=== PATIENT | male | born 1975 | race Caucasian/White ===

== ENCOUNTER 2022-09-09 09:04 | Emergency (ER) | payer OTHER, SELFPAY ==
--- NOTE | ~2022-09-09 | XR_ITS ---
Clinical Indication: Shortness of breath, chest pain PA and lateral views of the chest: Comparison: None Findings: The lungs are clear, without evidence of focal consolidation or pleural effusion. Cardiome diastinal silhouette is within normal limits. Bones and soft tissues are unremarkable. Impression: Normal chest. Reviewed, dictated and finalized at [facility]. TUTOR Impression: Normal chest.
[2022-09-09 09:08] VITALS: BP 184/126; PULSE 92; RESP 20; TEMP 36.5; O2SAT 100
--- NOTE | 2022-09-09 09:21 | ECG_ITS ---
Measurements Intervals [place] Rate: 70 P: 65 ND: 143 QRS: 26 QRSD: 104 T: 53 QT: 374 QTc: 405 Interpretive Statements SINUS RHYTHM POSSIBLE LEFT ATRIAL ENLARGEMENT [-0.1mV P WAVE IN V1/V2] POSSIBLE RIGHT VENTRICULAR CONDUCTION DELAY [RSR (QR) IN V1/V2] NO PREVIOUS ECG AVAILABLE FOR COMPARISON Electronically Signed On 09-09-2022 12:12:47 CARDIOTHORACIC ANESTHESIA TECHNICIAN by Thuan Ortiz M.D.
--- NOTE | 2022-09-09 09:43 | ED.CHESTPAIN ---
HPI - Chest Pain General Chief Complaint: Chest Pain Stated Complaint: Chest Pain/Shortness of Breath Time Seen by Provider: 09/09/22 09:08 Source: patient, RN notes reviewed and old records reviewed Mode of arrival: ambulatory Limitations: no limitations History of Present Illness HPI narrative: 46-year-old male presents to [facility] with complaints of 3 days history of shortness of breath and chest pain which is midsternal. Friday his called ambulance and they came to his house but he refused to go to the hospital at that time. Patient states today his pain has increased with activity remains with sternal chest discomfort which he can't describe. Patient admits that he is a 1 pack a day smoker since age 19 and he does admit to daily alcohol use. Patient denies any radiation of pain to arms, back, jaw, no diaphoresis, denies any nausea or vomiting. MD complaint: chest pain and other (shortness of breath) Pertinent past history: other (alcohol and tobacco use) Onset (ago): day(s) (3 days) Pain location: substernal Pain radiation: none Pain scale (0-10): 5 Associated symptoms: dyspnea Treatment prior to arrival: none Related Data Home Medications Medication Instructions Recorded Confirmed No Home Medications 09/09/22 09/09/22 Allergies Allergy/AdvReac Type Severity Reaction Status Date / Time No Known Allergies Allergy Verified 09/09/22 09:26 Review of Systems Review of Systems: CONSTITUTIONAL: Denies fever, chills, or sweats. EYES: Denies visual changes, redness, or discharge. ENT: Denies rhinorrhea, congestion, sore throat, or otalgia. CARDIOVASCULAR: Reports sternal chest pain,no palpitations, or edema. RESPIRATORY: Denies acute cough, reports some shortness of breath which increases with activity. GASTROINTESTINAL: Denies abdominal pain, nausea, vomiting, or diarrhea. GENITOURINARY: Denies dysuria or hematuria. SKIN: Denies rash or itching. MUSCULOSKELETAL: Denies back pain, joint pain, or myalgia. NEUROLOGIC: Denies headache, numbness, or weakness. PSYCHIATRIC: Denies anxiety or depression. All systems reviewed & are unremarkable except as noted in HPI and below PMFSH Surgical History Surgical History (Updated 09/10/22 @ 11:49 by Marlena Aguilera NP) History of knee surgery bilateral arthroscopy Family History Family History (Updated 09/10/22 @ 11:49 by Marlena Aguilera NP) Father Heart disease Grandparent Heart disease Mother Heart disease Social History Social History (Updated 09/10/22 @ 11:48 by Marlena Aguilera NP) Smoking packs per day: 1 Smoking cigarettes per day: 20.0 Years smoked: 27 Smoking pack-years: 27.00 Smoking status: Current every day smoker Tobacco type: cigarettes Alcohol intake: current Substance use type: does not use Living arrangements: with family Gender identity (if verbalized by the patient): Male Comments At time of signature, agree with nursing past medical, surgical, social and family history. There is no relevant family history pertinent to the presenting complaint Exam Narrative: GENERAL: Well-appearing, well-nourished, and in no acute distress. HEAD: Normocephalic, atraumatic. EYES: PERRLA and EOMI. ENT: Nares clear, no rhinorrhea or epistaxis. Mucous membranes moist.TM's normal with good light reflexk throat pink with no lesions or exudates NECK: Supple.no lymphadenopathy CHEST: Clear to auscultation. No respiratory distress.no acute cough noted SAO2 100% on room air HEART: Regular rate and rhythm. No murmur heard. Normal peripheral pulses. ABDOMEN: Soft, nontender, nondistended, normal active bowel sounds, no nausea. EXTREMITIES: Normal range of motion. No edema. SKIN: Warm, dry, no rash. NEURO: No focal deficits. Alert and oriented x3. Course Course Emergency Course: Patient is aware of diagnosis, understands and agrees to treatment plan.? Anticipatory guidance given.? Patient agrees to follow-up as directed a
[2022-09-09 09:50] VITALS: BP 170/104
[2022-09-09 09:58] VITALS: BP 170/104
== END 2022-09-09 09:58 | disposition short-term general hospital (02) ==
PROVIDERS: Emergency Provider Registered Nurse
DX: R07.9 Chest pain, unspecified (principal); I10 Essential (primary) hypertension; F17.210 Nicotine dependence, cigarettes, uncomplicated
CPT/HCPCS: 71046; 93005; 99213; G0463